=== PATIENT | female | born 1985 | race Asian ===

== ENCOUNTER 2023-04-20 20:52 | Emergency (ER) | payer BC ==
[~2023-04-20] VITALS: Ht 154.9 cm; Wt 52.2 kg
[2023-04-20 21:03] VITALS: BP_SYST 91; PULSE 74; RESP 21; TEMP 97; O2SAT 99
[2023-04-20] MEDS ORDERED: AMOX-423 PO (22:30)
[2023-04-20 22:43] VITALS: BP_SYST 91; PULSE 74; RESP 21; TEMP 97; O2SAT 99
== END 2023-04-20 22:43 | disposition home or self-care (01) ==
LOC: SED 20:52
DX: S01.85XA Open bite of other part of head, initial encounter (principal); Z79.899 Other long term (current) drug therapy; W54.0XXA Bitten by dog, initial encounter; Y93.89 Activity, other specified; Y92.89 Other specified places as the place of occurrence of the external cause; Y99.8 Other external cause status
CPT/HCPCS: 99283